=== PATIENT | female | born 1985 | race Caucasian/White ===

== ENCOUNTER 2016-11-17 08:03 | Emergency (ER) | payer MEDICAID ==
[~2016-11-17] VITALS: Ht 170.2 cm; Wt 91.7 kg
[2016-11-17] MEDS ORDERED: BUPIVACAINE 0.25% ONE (08:51)
[2016-11-17] MEDS ORDERED: LIDOCAINE 1%, 20ML ONE (08:51)
[2016-11-17] MEDS ORDERED: BENZOCAINE 20% SPRAY 0.5ML ONE (08:54)
[2016-11-17] MEDS ORDERED: LIDOCAINE 1%, 20ML SQ ONE (09:00)
[2016-11-17] MEDS ORDERED: BENZOCAINE 20% SPRAY 0.5ML TP ONE (09:00)
[2016-11-17] MEDS ORDERED: BUPIVACAINE/PF-EPI 0.25% 1:200K SQ ONE (09:00)
[2016-11-17 09:45] VITALS: BP 139/81
== END 2016-11-17 09:47 | disposition home or self-care (01) ==
LOC: ED 09:16
DX: K02.9 Dental caries, unspecified (principal); F19.10 Other psychoactive substance abuse, uncomplicated
CPT/HCPCS: 99283

== ENCOUNTER 2018-06-16 23:30 | Inpatient (IN) | payer MEDICAID ==
[~2018-06-16] VITALS: Ht 170.2 cm; Wt 123.2 kg
--- NOTE | 2018-06-17 00:24 | NUR ---
PT. TO ROOM FROM LOBBY AT THIS TIME.
[2018-06-17] MEDS ORDERED: SODIUM CHLORIDE 0.9% 1,000 ML IV ONE (01:06)
[2018-06-17] MEDS ORDERED: ONDANSETRON 2MG/ML, 2ML IVPush ONE (01:30)
[2018-06-17] MEDS ORDERED: LORazepam 2 MG/ML, 1ML IVPush PRN (01:30)
[2018-06-17] MEDS ORDERED: MAGNESIUM SULFATE 1 GM, THIAMINE 100 MG, FOLIC ACID 1 MG, MVI ADULT 10 ML in SODIUM CHL... IV ONE (01:30)
[2018-06-17] MEDS ORDERED: SODIUM CHLORIDE FLUSH 10ML SYR IVF ONE (01:30)
[2018-06-17] MEDS ORDERED: PROMETHAZINE 25 MG/ML, 1ML IM ONE (01:30)
[2018-06-17] MEDS ORDERED: DIAZEPAM 10 MG TABLET PO ONE (01:30)
--- NOTE | 2018-06-17 02:01 | NUR ---
PIV PLACED. PT MEDICATED PER EMAR. PT PLACED ON CONT. SPO2, BP, AND PARKS AND RECREATION MANAGER, VSS. AWAITING ADMIT BED
[2018-06-17] MEDS ORDERED: PROMETHAZINE 25 MG/ML, 1ML ONE (02:02)
[2018-06-17] MEDS ORDERED: DIAZEPAM 5 MG TABLET ONE (02:02)
[2018-06-17] MEDS ORDERED: ONDANSETRON 2MG/ML, 2ML ONE (02:02)
[2018-06-17] MEDS ORDERED: MORPHINE SULFATE 4 MG/ML, 1ML ONE (02:10)
[2018-06-17] MEDS ORDERED: MORPHINE SULFATE 4 MG/ML, 1ML IVPush ONE (02:30)
--- NOTE | 2018-06-17 02:41 | NUR ---
PT PLACED ON 2L NC, O2 DROPPING FROM MEDS.
[2018-06-17] MEDS ORDERED: ONDANSETRON 2MG/ML, 2ML IVPush PRN (03:30)
[2018-06-17] MEDS ORDERED: ONDANSETRON ODT 4 MG PO PRN (03:30)
[2018-06-17] MEDS ORDERED: LABETALOL 5MG/ML, 20ML IVPush PRN (03:30)
[2018-06-17] MEDS ORDERED: POLYETHYLENE GLYCOL 17 GM PACKET PO PRN (03:30)
[2018-06-17] MEDS ORDERED: ACETAMINOPHEN 325 MG TABLET PO PRN (03:30)
[2018-06-17] MEDS ORDERED: LORazepam 2 MG/ML, 1ML IV PRN ×5 (03:30)
[2018-06-17] MEDS ORDERED: DOCUSATE 100 MG CAPSULE PO PRN (03:30)
[2018-06-17] MEDS ORDERED: hydrALAzine 20 MG/ML, 1ML IVPush PRN (03:30)
[2018-06-17] MEDS ORDERED: BISACODYL 10 MG SUPP PR PRN (03:30)
[2018-06-17] MEDS ORDERED: LORazepam 0.5MG TABLET PO PRN (03:30)
[2018-06-17] MEDS ORDERED: LORazepam 1MG TABLET PO PRN ×4 (03:30)
--- NOTE | 2018-06-17 04:03 | NUR ---
REPORT FROM MARTELL GARCIA IN NAD AT THIS TIME
[2018-06-17 04:10] LABS: FREE T4 (FREE THYROXINE) 1.27 ng/dL (0.76-1.46)
[2018-06-17 04:13] LABS: HEMOGLOBIN A1C 6.2 % (4.2-6.3)
--- NOTE | 2018-06-17 06:50 | NUR ---
REPORT RECEIVED. ASSUMED PT CARE.
--- NOTE | 2018-06-17 07:30 | NUR ---
PT ASLEEP. NO S/S OF DISTRESS NOTED.
[2018-06-17] MEDS ORDERED: THIAMINE 100MG TABLET ONE (08:45)
[2018-06-17] MEDS: MULTIVITAMIN 1 TABLET PO SCH (09:00)
[2018-06-17] MEDS: FOLIC ACID 1 MG TABLET PO SCH (09:00)
--- NOTE | 2018-06-17 09:10 | NUR ---
ASSUMED CARE OF PT. CURRENTLY RESING IN BED WITH NO COMPLAINTS. Addendum: 06/17/18 at 0951 by MELODY ASSUMED CARE OF PT. CURRENTLY RESTING IN BED WITH NO COMPLAINTS.
[2018-06-17] MEDS ORDERED: OXYcodone IR 5MG TABLET ONE (09:46)
[2018-06-17] MEDS: THIAMINE 100MG TABLET PO SCH (09:50)
[2018-06-17] MEDS: OXYcodone IR 5MG TABLET PO PRN ×2 (09:59→18:30)
[2018-06-17] MEDS ORDERED: OXYcodone 5 MG/5 ML ORAL.SOL UDC PO PRN (10:00)
--- NOTE | 2018-06-17 10:36 | NUR ---
LAB AT FOR DRAW
[2018-06-17 11:06] LABS: MEAN CORPUSCULAR HEMOGLOBIN 35.4 pg (27.0-34.8); MEAN CORPUSCULAR HGB CONC 34.2 g/dL (32.4-35.8); MEAN CORPUSCULAR VOLUME 103.6 fL (80-100); MEAN PLATELET VOLUME 9.2 fL (7.4-10.4); PLATELET COUNT 121 x10^3/uL (130-400); RED BLOOD COUNT 3.51 x10^6/uL (3.82-5.3); RED CELL DISTRIBUTION WIDTH 17.8 % (9.6-15.2)
[2018-06-17 11:33] LABS: MD YES
[2018-06-17 11:35] LABS: ANISOCYTOSIS 1+; BAND#(MANUAL) 0.05 x10^3/uL; BANDS%(MANUAL) 1 % (0-7); EOS% (MANUAL) 2 % (1-7); LYMPH#(MANUAL) 1.79 x10^3/uL (1-3.4); LYMPHS% (MANUAL) 35 % (22-44); MONOS% (MANUAL) 4 % (2-9); SEG#(MANUAL) 2.96 x10^3/uL (1.8-6.8); SEGS% (MANUAL) 58 % (42-75)
[2018-06-17 11:36] LABS: <PLATELET ESTIMATE> DECREASED; <PLT MORPHOLOGY> NORMAL PLT MORPH; POLYCHROMASIA 1+
--- NOTE | 2018-06-17 11:40 | NUR ---
SITTING ON THE EDGE OF THE BED. WATCHING TV.
[2018-06-17 11:51] LABS: ALBUMIN 2.6 g/dL (3.4-5.0); ALKALINE PHOSPHATASE 204 U/L (45-117); ANION GAP 11 mmol/L (5-15); BILIRUBIN,TOTAL 8.8 mg/dL (0.2-1.0); CALCIUM 7.8 mg/dL (8.5-10.1); CHLORIDE 103 mmol/L (98-107); CREATININE 0.63 mg/dL (0.55-1.02); TOTAL PROTEIN 6.3 g/dL (6.4-8.2)
[2018-06-17 11:52] LABS: ALANINE AMINOTRANSFERASE 63 U/L (12-78)
--- NOTE | 2018-06-17 12:07 | NUR ---
REPORT GIVEN TO CHAI
--- NOTE | 2018-06-17 12:21 | NUR ---
PT RECEIVED MEAL TRAY, DENIES FURTHER NEEDS AT THIS TIME
--- NOTE | 2018-06-17 15:31 | NUR ---
SBAR TO CHIVO WALKER VIA TELEPHONE
--- NOTE | 2018-06-17 15:47 | NUR ---
PT AMBULATE TO BATHROOM, NO S/S OF DISTRESS
[2018-06-17 16:21] VITALS: BP 137/86
[2018-06-17] MEDS: SODIUM CHLORIDE 0.9% 1,000 ML IV SCH ×2 (20:01→20:02)
[2018-06-17 20:36] VITALS: BP 134/86
[2018-06-18 02:30] VITALS: BP 118/71
[2018-06-18] MEDS: SODIUM CHLORIDE 0.9% 1,000 ML IV SCH (04:07)
[2018-06-18 05:16] LABS: MEAN CORPUSCULAR HEMOGLOBIN 36.3 pg (27.0-34.8); MEAN CORPUSCULAR HGB CONC 35.1 g/dL (32.4-35.8); MEAN CORPUSCULAR VOLUME 103.4 fL (80-100); MEAN PLATELET VOLUME 9.3 fL (7.4-10.4); PLATELET COUNT 106 x10^3/uL (130-400); RED BLOOD COUNT 3.33 x10^6/uL (3.82-5.3)
[2018-06-18 05:27] LABS: ALBUMIN 2.4 g/dL (3.4-5.0); ANION GAP 8 mmol/L (5-15); CALCIUM 7.9 mg/dL (8.5-10.1); CHLORIDE 102 mmol/L (98-107)
[2018-06-18 05:38] LABS: ALKALINE PHOSPHATASE 192 U/L (45-117); BILIRUBIN,TOTAL 9.7 mg/dL (0.2-1.0); CHOL/HDL RATIO 33.3; CHOLESTEROL, TOTAL 433 mg/dL (140-239); CREATININE 0.66 mg/dL (0.55-1.02); HDL CHOL % 3 % (28-40); HDL CHOLESTEROL (DIRECT) 13 mg/dL (40-60); TOTAL PROTEIN 6.1 g/dL (6.4-8.2)
[2018-06-18 05:52] LABS: MD YES
[2018-06-18 05:57] LABS: ANISOCYTOSIS 1+; BASOS#(MANUAL) 0.06 x10^3/uL (0-0.1); BASOS% (MANUAL) 1 % (0-1); LYMPHS% (MANUAL) 21 % (22-44); MONOS#(MANUAL) 0.57 x10^3/uL (0.3-2.7); MONOS% (MANUAL) 10 % (2-9); POLYCHROMASIA 1+; SEG#(MANUAL) 3.88 x10^3/uL (1.8-6.8); SEGS% (MANUAL) 68 % (42-75)
[2018-06-18 05:58] LABS: <PLATELET ESTIMATE> DECREASED; <PLT MORPHOLOGY> NORMAL PLT MORPH
[2018-06-18 06:54] LABS: ALANINE AMINOTRANSFERASE 65 U/L (12-78); TRIGLYCERIDES 1133 mg/dL (50-200)
[2018-06-18] MEDS ORDERED: ERGOCALCIFEROL 50,000 UNIT CAPSULE PO SCH (07:00)
[2018-06-18 07:22] VITALS: BP 131/79
[2018-06-18] MEDS: FOLIC ACID 1 MG TABLET PO SCH (08:58)
[2018-06-18] MEDS: THIAMINE 100MG TABLET PO SCH (08:59)
[2018-06-18] MEDS: MULTIVITAMIN 1 TABLET PO SCH (09:02)
[2018-06-18] MEDS ORDERED: FENOFIBRATE 145 MG TABLET PO SCH (12:30)
[2018-06-18 14:44] VITALS: BP 136/76
[2018-06-18] MEDS ORDERED: FENO145T30 PO (15:24)
[2018-06-18] MEDS ORDERED: MULT1TAB60 PO (15:24)
[2018-06-18] MEDS ORDERED: ERGO500017 PO (15:24)
== END 2018-06-18 16:56 | disposition home or self-care (01) | DRG 432 ==
LOC: ED 06-17 01:57 → EDIP 06-17 01:58 → 3NE 06-17 15:55 → DCLOUNGE 06-18 16:30
PROVIDERS: ADMIT Internal Medicine; ATTEND Internal Medicine
DX: K70.11 Alcoholic hepatitis with ascites (principal); K85.20 Alcohol induced acute pancreatitis without necrosis or infection; Z68.41 Body mass index [BMI] 40.0-44.9, adult; E87.1 Hypo-osmolality and hyponatremia; F10.239 Alcohol dependence with withdrawal, unspecified; J98.11 Atelectasis; D69.6 Thrombocytopenia, unspecified; D75.89 Other specified diseases of blood and blood-forming organs; E55.9 Vitamin D deficiency, unspecified; E66.9 Obesity, unspecified; F41.9 Anxiety disorder, unspecified; K74.60 Unspecified cirrhosis of liver; K76.0 Fatty (change of) liver, not elsewhere classified; Z83.3 Family history of diabetes mellitus; Z87.891 Personal history of nicotine dependence; Z90.49 Acquired absence of other specified parts of digestive tract; Z88.2 Allergy status to sulfonamides
CPT/HCPCS: 36415; 80053; 80061; 82306; 82607; 83036; 83690; 83735; 84439; 84443; 84703; 85025; 93005; 96365; 96366; 96372; 96375; G0378; J2405; J2550; J3411; J3475; J7030

== ENCOUNTER 2019-07-16 11:09 | Emergency (ER) | payer MEDICAID ==
[~2019-07-16] VITALS: Ht 167.6 cm; Wt 118.4 kg
[~2019-07-16 11:09] MED LIST: ERGO500017 PO; FENO145T19 PO; MULT1TAB60 PO
[2019-07-16] MEDS ORDERED: ONDANSETRON 2MG/ML, 2ML ONE (11:50)
[2019-07-16] MEDS ORDERED: ONDANSETRON 2MG/ML, 2ML IVPush ONE (12:00)
--- NOTE | 2019-07-16 12:14 | NUR ---
BREAK RN: PT UPRIGHT ON GURNEY AWAKE & CALM, MEDICATED PER EMAR FOR NAUSEA, RESPONDS APPROP TO STAFF, COMFORT MEASURES PROVIDED, CALL LIGHT WITHIN REACH.
[2019-07-16 12:24] LABS: ALBUMIN 2.9 g/dL (3.4-5.0); ANION GAP 9 mmol/L (5-15); CALCIUM 8.6 mg/dL (8.5-10.1); CHLORIDE 96 mmol/L (98-107); CREATININE 0.77 mg/dL (0.55-1.02)
[2019-07-16 12:27] LABS: ALKALINE PHOSPHATASE 318 U/L (45-117); BILIRUBIN,TOTAL 10.2 mg/dL (0.2-1.0); TOTAL PROTEIN 7.2 g/dL (6.4-8.2)
[2019-07-16 12:29] LABS: MEAN CORPUSCULAR HGB CONC 34.1 g/dL (32.4-35.8); MEAN CORPUSCULAR VOLUME 105.7 fL (80-100); PLATELET COUNT 150 x10^3/uL (130-400); RED BLOOD COUNT 3.74 x10^6/uL (3.82-5.3); RED CELL DISTRIBUTION WIDTH 16.3 % (9.6-15.2)
[2019-07-16 12:38] LABS: INTERNATIONAL NORMALIZED RATIO 1.11 (0.93-1.1); PROTHROMBIN TIME 11.8 Seconds (9.6-11.5)
[2019-07-16 12:43] LABS: MICROSCOPIC INDICATED
[2019-07-16 12:50] LABS: ALANINE AMINOTRANSFERASE 62 U/L (12-78)
[2019-07-16 13:00] LABS: CULTURE INDICATED? NO
[2019-07-16] MEDS ORDERED: SODIUM CHLORIDE 0.9%, 500ML IVBOLUS ONE (13:00)
[2019-07-16 13:06] LABS: MD YES
[2019-07-16 13:08] LABS: BAND#(MANUAL) 0.58 x10^3/uL; BANDS%(MANUAL) 11 % (0-7); EOS#(MANUAL) 0.11 x10^3/uL (0.0-0.4); EOS% (MANUAL) 2 % (1-7); LYMPH#(MANUAL) 0.74 x10^3/uL (1-3.4); LYMPHS% (MANUAL) 14 % (22-44); MONOS#(MANUAL) 0.32 x10^3/uL (0.3-2.7); MONOS% (MANUAL) 6 % (2-9); SEG#(MANUAL) 3.55 x10^3/uL (1.8-6.8); SEGS% (MANUAL) 67 % (42-75)
[2019-07-16 13:09] LABS: <PLATELET ESTIMATE> ADEQUATE; <PLT MORPHOLOGY> NORMAL PLT MORPH; ANISOCYTOSIS 1+; POLYCHROMASIA 1+
--- NOTE | 2019-07-16 13:20 | NUR ---
RECEIVED REPORT FROM DENISE MALDONADO. PT RESTING ON DEDE. NADN. LAWRENCE.
[2019-07-16 15:19] VITALS: BP 137/92
--- NOTE | 2019-07-16 15:19 | NUR ---
PT RESTING ON [employer]. PT PROVIDED W/ WATER FOR PO CHALLENGE.
[2019-07-16 15:22] LABS: BILIRUBIN, DIRECT 8.1 mg/dL (0.1-0.2)
[2019-07-16] MEDS ORDERED: POTASSIUM CHLORIDE 20 MEQ TAB.ER.PRT PO ONE (16:00)
== END 2019-07-16 16:01 | disposition home or self-care (01) ==
LOC: ED 13:09
DX: K70.0 Alcoholic fatty liver (principal); R10.13 Epigastric pain; R11.2 Nausea with vomiting, unspecified; E80.6 Other disorders of bilirubin metabolism
CPT/HCPCS: 36415; 71045; 76700; 80053; 80307; 81001; 82248; 83615; 83690; 85025; 85610; 85730; 96361; 96374; 99284; J2405; J7040